=== PATIENT | male | born 1975 | race Caucasian/White ===

== ENCOUNTER 2022-05-08 14:49 | Inpatient (IN) | payer OTHER ==
[2022-05-08] MEDS ORDERED: NITROGLYCERIN OINT 1 INCH/GM PACKET TOPICAL STA (15:08)
[2022-05-08] MEDS ORDERED: ASPIRIN 81 MG PO STA (15:08)
[2022-05-08] MEDS ORDERED: MAG HYDROX/AL HYDROX/SIMETH 30 ML, HYOSCYAMINE ELIXIR 10 ML PO STA ×2 (15:18)
[2022-05-08] MEDS ORDERED: PANTOPRAZOLE 40 MG/10 ML VIAL IVP STA (15:19)
[2022-05-08 15:49] LABS: Basophils # (A) 0.1 k/uL (0-0.2); Basophils % (A) 1 %; Eosinophils # (A) 0.3 k/uL (0-0.7); Eosinophils % (A) 2 %; HCT 46.5 % (39.0-53.0); HGB 16.1 gm/dL (13.0-17.5); Lymphocytes # (A) 3.2 k/uL (1.0-4.8); Lymphocytes % (A) 20 %; MCH 31.3 pg (25.0-35.0); MCHC 34.7 g/dL (31.0-37.0); MCV 90.1 fL (80.0-100.0); Monocytes # (A) 0.9 k/uL (0-1.0); Monocytes % (A) 5 %; Neutrophils # (A) 11.5 k/uL (1.3-7.7); Neutrophils % (A) 71 %; Platelet Count 290 k/uL (150-450); RBC 5.16 m/uL (4.30-5.90); WBC 16.2 k/uL (3.8-10.6)
[2022-05-08 15:57] LABS: ALT 37 U/L (4-49); AST 135 U/L (17-59); African American GFR (CKD) >90 (>60 ml/min/1.73 sqM); Albumin 4.2 g/dL (3.5-5.0); Alkaline Phosphatase 69 U/L (38-126); Anion Gap 12 mmol/L; Blood Urea Nitrogen 8 mg/dL (9-20); Calcium 8.8 mg/dL (8.4-10.2); Carbon Dioxide 18 mmol/L (22-30); Chloride 104 mmol/L (98-107); Glucose 99 mg/dL (74-99); Magnesium 1.9 mg/dL (1.6-2.3); Non-African American GFR(CKD) >90 (>60 ml/min/1.73 sqM); Partial Thromboplastin Time 22.2 sec (22.0-30.0); Potassium 4.7 mmol/L (3.5-5.1); Prothrombin Time 10.5 sec (9.0-12.0); Sodium 134 mmol/L (137-145); Total Bilirubin 0.5 mg/dL (0.2-1.3); Total Protein 7.1 g/dL (6.3-8.2)
--- NOTE | 2022-05-08 16:22 | ED ---
General Adult HPI - General Chief complaint: Chest Pain Stated complaint: burning in chest Time Seen by Provider: 05/08/22 14:50 Source: patient, EMS, RN notes reviewed, old records reviewed Mode of arrival: EMS Limitations: no limitations - History of Present Illness Initial comments: This is a 46-year-old male who presents emergency Department with a past medical history significant for smoking and a strong family history of heart disease. Patient denies any history of high cholesterol high blood pressure or diabetes. Patient comes in today because at 4:00 in the morning started having significant left-sided chest pain radiated to his arm and into his back. Patient states thought it was heartburn so he took some antacids but it did not help. Patient states he has never had acid reflux this bad and he normally doesn't have a regular basis. Patient denies shortness of breath. Patient denies any diaphoretic episodes. Patient denies any abdominal pain. Patient denies any recent fever chills or cough. Patient denies any headache patient denies numbness weakness. - Related Data Home Medications Medication Instructions Recorded Confirmed No Known Home Medications 05/08/22 05/08/22 Allergies Allergy/AdvReac Type Severity Reaction Status Date / Time No Known Allergies Allergy Verified 05/08/22 15:51 Review of Systems ROS Statement: Those systems with pertinent positive or pertinent negative responses have been documented in the HPI. ROS Other: All systems not noted in ROS Statement are negative. Past Medical History Past Medical History: No Reported History History of Any Multi-Drug Resistant Organisms: None Reported Past Surgical History: No Surgical Hx Reported Past Psychological History: ADD/ADHD, Depression Smoking Status: Current every day smoker Past Alcohol Use History: None Reported Past Drug Use History: Marijuana General Exam - General Exam Comments Initial Comments: GENERAL: Patient is well-developed and well-nourished. Patient is nontoxic and well- hydrated and is in mild distress. ENT: Neck is soft and supple. No significant lymphadenopathy is noted. Oropharynx is clear. Moist mucous membranes. Neck has full range of motion without eliciting any pain. EYES: The sclera were anicteric and conjunctiva were pink and moist. Extraocular movements were intact and pupils were equal round and reactive to light. Eyelids were unremarkable. PULMONARY: Unlabored respirations. Good breath sounds bilaterally. No audible rales rhonchi or wheezing was noted. CARDIOVASCULAR: There is a regular rate and rhythm without any murmurs gallops or rubs. ABDOMEN: Soft and nontender with normal bowel sounds. SKIN: Skin is clear with no lesions or rashes and otherwise unremarkable. NEUROLOGIC: Patient is alert and oriented x3. Cranial nerves II through XII are grossly intact. Motor and sensory are also intact. Normal speech, volume and content. Symmetrical smile. MUSCULOSKELETAL: Normal extremities with adequate strength and full range of motion. LYMPHATICS: No significant lymphadenopathy is noted PSYCHIATRIC: Normal psychiatric evaluation. Limitations: no limitations Course Vital Signs 05/08/22 14:53 Temperature 97.8 F Pulse Rate 100 Respiratory 18 Rate Blood Pressure 123/87 O2 Sat by Pulse 96 Oximetry Medical Decision Making - Medical Decision Making I interpreted EKG. EKG shows sinus rhythm at 79 bpm AK interval 120 QRS is 103 QT interval 343 QTC is 378. Patient's EKG shows no ST segment elevation or depression. Patient has Q waves inferiorly I interpret the x-ray the chest x-ray shows no acute abnormalities. New. Bailey nt's troponin came back elevated so started the patient on heparin for his non- STEMI. I spoke with cardiology I spoke with Dr. Barboza he agrees to see the patient. I spoke with [facility] agreed to admit the patient admitted the patient wrote admitting orders. I also gave the patient aspirin and nitroglycerin in the emergency department both paced and sublingual. Patient continues to have chest pain currently. - Lab Data Result diagrams: 05/08/22 15:38 05/08/22 15:38 Lab Results 05/08/22 05/08/22 05/08/22 Range/Units 15:38 15:38 15:38 WBC 16.2 H (3.8-10.6) k/uL RBC 5.16 (4.30-5.90) m/uL Hgb 16.1 (13.0-17.5) gm/dL Hct 46.5 (39.0-53.0) % MCV 90.1 (80.0-100.0) fL MCH 31.3 (25.0-35.0) pg MCHC 34.7 (31.0-37.0) g/dL RDW 14.0 (11.5-15.5) % Plt Count 290 (150-450) k/uL MPV 9.0 Neutrophils % 71 % Lymphocytes % 20 % Monocytes % 5 % Eosinophils % 2 % Basophils % 1 % Neutrophils # 11.5 H (1.3-7.7) k/uL Lymphocytes # 3.2 (1.0-4.8) k/uL Monocytes # 0.9 (0-1.0) k/uL Eosinophils # 0.3 (0-0.7) k/uL Basophils # 0.1 (0-0.2) k/uL PT 10.5 (9.0-12.0) sec INR 1.0 (<1.2) APTT 22.2 (22.0-30.0) sec Sodium 134 L (137-145) mmol/L Potassium 4.7 (3.5-5.1) mmol/L Chloride 104 (98-107) mmol/L Carbon Dioxide 18 L (22-30) mmol/L Anion Gap 12 mmol/L BUN 8 L (9-20) mg/dL Creatinine 0.62 L (0.66-1.25) mg/dL Est GFR (CKD-EPI)AfAm >90 (>60 ml/min/1.73 sqM) Est GFR (CKD-EPI)NonAf >90 (>60 ml/min/1.73 sqM) Glucose 99 (74-99) mg/dL Calcium 8.8 (8.4-10.2) mg/dL Magnesium 1.9 (1.6-2.3) mg/dL Total Bilirubin 0.5 (0.2-1.3) mg/dL AST 135 H (17-59) U/L ALT 37 (4-49) U/L Alkaline Phosphatase 69 (38-126) U/L Troponin I (0.000-0.034) ng/mL Total Protein 7.1 (6.3-8.2) g/dL Albumin 4.2 (3.5-5.0) g/dL 05/08/22 Range/Units 15:38 WBC (3.8-10.6) k/uL RBC (4.30-5.90) m/uL Hgb (13.0-17.5) gm/dL Hct (39.0-53.0) % MCV (80.0-100.0) fL MCH (25.0-35.0) pg MCHC (31.0-37.0) g/dL RDW (11.5-15.5) % Plt Count (150-450) k/uL MPV Neutrophils % % Lymphocytes % % Monocytes % % Eosinophils % % Basophils % % Neutrophils # (1.3-7.7) k/uL Lymphocytes # (1.0-4.8) k/uL Monocytes # (0-1.0) k/uL Eosinophils # (0-0.7) k/uL Basophils # (0-0.2) k/uL PT (9.0-12.0) sec INR (<1.2) APTT (22.0-30.0) sec Sodium (137-145) mmol/L Potassium (3.5-5.1) mmol/L Chloride (98-107) mmol/L Carbon Dioxide (22-30) mmol/L Anion Gap mmol/L BUN (9-20) mg/dL Creatinine (0.66-1.25) mg/dL Est GFR (CKD-EPI)AfAm (>60 ml/min/1.73 sqM) Est GFR (CKD-EPI)NonAf (>60 ml/min/1.73 sqM) Glucose (74-99) mg/dL Calcium (8.4-10.2) mg/dL Magnesium (1.6-2.3) mg/dL Total Bilirubin (0.2-1.3) mg/dL AST (17-59) U/L ALT (4-49) U/L Alkaline Phosphatase (38-126) U/L Troponin I 7.550 H* (0.000-0.034) ng/mL Total Protein (6.3-8.2) g/dL Albumin (3.5-5.0) g/dL Critical Care Time Critical Care Time: Yes Total Critical Care Time: 35 Disposition Clinical Impression: Acute non-ST elevation myocardial infarction (NSTEMI) Disposition: ADMITTED IP TO THIS [facility] Time of Disposition: 16:51
--- NOTE | 2022-05-08 16:32 | XR ---
EXAMINATION TYPE: XR chest 2V DATE OF EXAM: 05/08/2022 COMPARISON: None INDICATION: Chest pain TECHNIQUE: Frontal and lateral views of the chest are obtained. Respiratory motion artifact is evide nt on the lateral projection FINDINGS: The heart size is normal. The pulmonary vasculature is normal. The lungs are clear. IMPRESSION: 1. No acute pulmonary process.
[2022-05-08] MEDS ORDERED: HEPARIN SODIUM 1,000 UN/ML (10ML VL) IV ONE (16:37)
[2022-05-08] MEDS ORDERED: HEPARIN SOD,PORK IN 0.45% NACL 25,000 UNIT in 0.45% NACL 1 250ML.BAG IV SCH (16:45)
[2022-05-08] MEDS ORDERED: NITROGLYCERIN SL TABS 0.4 MG TAB SUBLINGUAL STA (16:54)
[2022-05-08] MEDS ORDERED: ALPRAZolam 0.5 MG TAB PO PRN (17:20)
[2022-05-08] MEDS ORDERED: ALPRAZolam 0.25 MG TAB PO PRN (17:20)
[2022-05-08] MEDS ORDERED: NITROGLYCERIN SL TABS 0.4 MG TAB SUBLINGUAL PRN ×2 (17:20→23:21)
--- NOTE | 2022-05-08 17:27 | P.CRDCN ---
History of Present Illness Consult date: 05/08/22 History of present illness: History of Present Illness: The patient is a 46-year-old male who has not been followed by physician, history of smoking who presents to the emergency room with chest discomfort that started 4:00 in the morning, left-sided with some left arm discomfort. He felt that the discomfort was related to heartburn, the patient had heartburn on and off for the last week. In the emergency room he was noted to have a troponin of 7. He has a family history of premature CAD as well as hyperlipidemia. He felt dyspneic today but not on a regular basis. He is not very active physically,. He denies any PND, orthopnea or peripheral edema. He has no history of stroke but had no recent workup. He's taking no medication at home and he denies any alcohol intake. His EKG showed sinus mechanism with QS pattern in the inferior as well as anterolateral leads with no ST segment elevation. Medications: None Review of Systems: Respiratory: He has no history of chronic dyspnea but he had dyspnea today GI: No nausea or vomiting . No history of peptic ulcer disease. No recent GI bleed. : No hematuria or dysuria. Nervous System: No stroke or seizure. Physical Examination: 46-year-old male alert oriented, obese,Blood pressure 125/70, Heart rate 70 Head: Normocephalic. Eyes: Sclerae nonicteric. Neck: Good carotid upstroke, no bruit, no jugular venous distention. Lungs: Clear to auscultation. Heart: Regular rate and rhythm, S1-S2, no S3, no rub. No murmur. Abdomen: Soft nontender, positive bowel sounds no organomegaly. Extremities: No edema, intact distal pulses. Labs: Blood blood cells 16.2, potassium 4.7 him a BUN 8, creatinine 0.62. Troponin 7.5. Chest x-ray no acute infiltrate EKG: Normal sinus rhythm with QS pattern in the inferior leads as well as lateral precordial leads consistent with inferoapical myocardial infarction Impression: 1. Myocardial infarction, no ST elevation at this time with troponin elevation 2. Family history of premature CAD 3. Family history of hyperlipidemia 4. Chronic tobacco use Plan: 1. Continue IV heparin 2. Start beta andreas and statin 3. Obtain an echocardiogram with Doppler 4. Have discussed with him the findings recommended to proceed with cardiac catheterization, the risks and the complications were discussed with the patient. Depending on the results of the testing further recommendations will be made. 5. Thank you for this consult we will follow with you. Past Medical History Past Medical History: No Reported History History of Any Multi-Drug Resistant Organisms: None Reported Past Surgical History: No Surgical Hx Reported Past Psychological History: ADD/ADHD, Depression Smoking Status: Current every day smoker Past Alcohol Use History: None Reported Past Drug Use History: Marijuana Medications and Allergies Home Medications Medication Instructions Recorded Confirmed Type No Known Home Medications 05/08/22 05/08/22 History Allergies Allergy/AdvReac Type Severity Reaction Status Date / Time No Known Allergies Allergy Verified 05/08/22 15:51 Physical Exam Vitals: Vital Signs Temp Pulse Resp BP Pulse Ox 05/08/22 14:53 97.8 F 100 18 123/87 96 Intake and Output 05/08/22 05/08/22 05/08/22 06:59 14:59 22:59 Other: Weight 158.757 kg Results 05/08/22 15:38 05/08/22 15:38 Cardiac Enzymes 05/08/22 05/08/22 Range/Units 15:38 15:38 AST 135 H (17-59) U/L Troponin I 7.550 H* (0.000-0.034) ng/mL Coagulation 05/08/22 Range/Units 15:38 PT 10.5 (9.0-12.0) sec APTT 22.2 (22.0-30.0) sec CBC 05/08/22 Range/Units 15:38 WBC 16.2 H (3.8-10.6) k/uL RBC 5.16 (4.30-5.90) m/uL Hgb 16.1 (13.0-17.5) gm/dL Hct 46.5 (39.0-53.0) % Plt Count 290 (150-450) k/uL Comprehensive Metabolic Panel 05/08/22 Range/Units 15:38 Sodium 134 L (137-145) mmol/L Potassium 4.7 (3.5-5.1) mmol/L Chloride 104 (98-107) mmol/L Carbon Dioxide 18 L (22-30) mmol/L BUN 8 L (9-20) mg/dL Creatinine 0.62 L (0.66-1.25) mg/dL Glucose 99 (74-99) mg/dL Calcium 8.8 (8.4-10.2) mg/dL AST 135 H (17-59) U/L ALT 37 (4-49) U/L Alkaline Phosphatase 69 (38-126) U/L Total Protein 7.1 (6.3-8.2) g/dL Albumin 4.2 (3.5-5.0) g/dL Current Medications Generic Name Dose Route Start Last Admin Trade Name Freq PRN Reason Stop Dose Admin Heparin Sodium/Sodium Chloride 250 mls @ 10 mls/hr 05/08/22 16:45 05/08/22 17:03 25,000 unit/ Sodium Chloride IV 6.2989 units/kg/hr .Q24H BRAYDEN 10 mls/hr Administration Protocol 6.2989 UNITS/KG/HR Nitroglycerin 0.4 mg 05/08/22 17:03 Nitroglycerin Sl Tabs 0.4 Mg Tab SUBLINGUAL Q5M PRN Chest Pain Nitroglycerin 1 inch 05/08/22 18:00 Nitroglycerin Oint 1 Inch/Gm Packet TOPICAL Q6HR BRAYDEN Intake and Output 05/08/22 05/08/22 05/08/22 06:59 14:59 22:59 Other: Weight 158.757 kg Patient Weight 05/09/22 06:59 Weight 158.757 kg 05/08/22 15:38 05/08/22 15:38
[2022-05-08] MEDS ORDERED: ACETAMINOPHEN TAB 500 MG TAB PO STA (17:56)
[2022-05-08] MEDS: ATORVASTATIN 40 MG TAB PO SCH (18:01)
[2022-05-08] MEDS: NITROGLYCERIN SL TABS 0.4 MG TAB SUBLINGUAL PRN ×2 (18:04→18:15)
[2022-05-08] MEDS: NITROGLYCERIN OINT 1 INCH/GM PACKET TOPICAL SCH (19:01)
[2022-05-08] MEDS ORDERED: NITROGLYCERIN-D5W PMX 50 MG in DEXTROSE/WATER 1 250ML.BAG IV SCH (20:00)
[2022-05-08] MEDS: METOPROLOL TARTRATE 25 MG TAB PO SCH (20:25)
[2022-05-08] MEDS ORDERED: ASPIRIN 325 MG TAB PO ONE (21:07)
[2022-05-08] MEDS ORDERED: VERAPAMIL 2.5 MG/ML 2 ML AMP ONE (21:11)
[2022-05-08] MEDS ORDERED: LIDOCAINE 1% INJ 10MG/ML (30 ML VIAL-PF) SQ ONE ×2 (21:30→21:39)
[2022-05-08] MEDS ORDERED: fentaNYL (PF) 50 MCG/1 ML VIAL IV ONE ×2 (21:38)
[2022-05-08] MEDS ORDERED: MIDAZOLAM 2 MG/2 ML VIAL IV ONE (21:38)
[2022-05-08] MEDS ORDERED: VERAPAMIL SYRINGE (5 MG/10 ML) INTRAARTER ONE (21:39)
[2022-05-08] MEDS: HEPARIN SODIUM 1,000 UN/ML (10ML VL) IV ONE ×3 (21:39→22:06)
[2022-05-08] MEDS ORDERED: HEPARIN SODIUM 1,000 UN/ML (10ML VL) ONE ×2 (21:40→22:17)
[2022-05-08] MEDS ORDERED: SODIUM CHLORIDE 0.9% 1,000 ML IV ONE (21:42)
[2022-05-08] MEDS ORDERED: TICAGRELOR 90 MG TAB ONE (22:02)
[2022-05-08] MEDS ORDERED: TICAGRELOR 90 MG TAB PO ONE (22:03)
[2022-05-08] MEDS ORDERED: niCARdipine 25 MG/10 ML VIAL ONE (22:23)
[2022-05-08] MEDS: niCARdipine Syringe (1,000 mcg/10 mL) INTRACORON ONE ×5 (22:26→22:44)
[2022-05-08] MEDS ORDERED: HEPARIN SODIUM,PORCINE 30 ML 30 ML ONE (22:32)
[2022-05-08] MEDS ORDERED: IOPAMIDOL-370 125ML BTL INJ ONE (22:46)
[2022-05-08] MEDS ORDERED: IOPAMIDOL-370 100ML BTL INJ ONE ×2 (22:47→23:18)
[2022-05-08] MEDS ORDERED: ATROPINE SULFATE 0.1 MG/ML 10ML SYRINGE IV PRN (23:21)
[2022-05-08] MEDS ORDERED: MAG HYDROX/AL HYDROX/SIMETH 30 ML CUP PO PRN (23:21)
[2022-05-08] MEDS ORDERED: ZOLPIDEM 5 MG TAB PO PRN (23:21)
[2022-05-08] MEDS ORDERED: RX INFO: IV CONTRAST WAS GIVEN 1 EACH MISC MISCELLANE PRN (23:21)
--- NOTE | 2022-05-08 23:21 | P.PRCINT ---
Percutaneous Coronary Int. - Percutaneous Coronary Intervention Percutaneous Coronary Intervention: PROCEDURES PERFORMED: Left heart catheterization, bilateral coronary angiography, IVUS LAD, PCI mid LAD with overlapping 4.0 x 18mm and 3.5 x 33mm Xience ANDERSON, post dilated with a 4.5 NC balloon, PCI apical LAD 2.25 x 18mm Xience ANDERSON, Penumbra aspiration thrombectomy INDICATION: Non-STEMI HISTORY: Patient is pleasant 46-year-old male who had been having chest pain since 4 AM. Troponins noted to be elevated and in having ongoing chest pain and therefore decision was made to perform heart catheterization. EKG by time he arrived to the geophysical laboratory chief did show anterolateral changes and the culprit lesion appeared to be LAD. CONSENT:I have discussed the risks, benefits and alternative therapies for the above-mentioned procedure and for both sedation/analgesia as well as necessary blood product administration, if indicated, as they pertain to this patient. The patient has indicated understanding and acceptance of the risks and procedures discussed. PROCEDURE: After the risks, benefits and alternatives of the above mentioned procedure explained in detail with the patient, informed consent was obtained. Patient was taken to the catheterization lab and prepped and draped in usual fashion. 1% lidocaine was used to anesthetize the right radial artery. A 6- [place]i sheath was placed in the right radial artery using modified Seldinger technique. Left coronary angiography was performed with a 5-[place] JL 3.5 catheter and right coronary angiography was performed with a 5-[place] JR5 catheter in various views. A 5-[place] FR5 catheter was inserted into the left ventricle and pressure measurements were obtained. There were anterolateral changes in the LAD and therefore decision was made to perform PCI of LAD. A 6-[place] EBU 3.75 guide was used engage the left main. A 0.014 BMW wire was advanced into the distal LAD. Predilation was performed with a 3.0 balloon. There is still no antegrade flow and therefore I this was performed which did show intraluminal wire position with diffuse clot throughout the entire mid LAD. Therefore penumbra aspiration thrombectomy was performed for 3 runs with a large amount of thrombus aspirated. Next predilation was performed with a 3.0 balloon. The vessel is noted to be 4.25 x 4.5 proximally and 3.5 x 3.25 more distally and therefore overlapping 4.0 x 18 mm and 3.5 x 33 mm Xience ANDERSON were placed in the mid LAD. IVUS was again performed which showed mildly underexpanded stent and therefore the stents were postdilated with a 4.5 balloon. There was extensive thrombus noted and there was temporary no reflow however this improved with nicardipine. There was a more distal apical LAD lesion and this was covered with a 2.25 x 18 mm Xience ANDERSON. The wire was pulled and final angiograms were performed. Her intervention there was 100% stenosis and NOLAN 0 flow. Postintervention there was circumflex percent stenosis and NOLAN-3 flow. The right radial sheath was removed and a TR band was placed with hemostasis achieved. The patient tolerated the procedure well. Patient was transported back to the post catheterization holding area in stable condition. Conscious Sedation: Patient was monitored under the direct supervision of vision of myself for conscious sedation using Versed and fentanyl for a total duration of 90 minutes HEMODYNAMICS: Aorta: 104/72 LV: 98/10, LVEDP 23 SELECTIVE CORONARY ARTERIOGRAPHY: LEFT MAIN: The left main is a large caliber vessel which bifurcates into the LAD and circumflex. There is no significant stenosis. LEFT ANTERIOR DESCENDING CORONARY ARTERY: LAD is a large caliber vessel which wraps around to the apex. There is 100% stenosis just after a large septal. Additionally once balloon angioplasty was performed as a distal LAD 80% stenosis. LEFT CIRCUMFLEX CORONARY ARTERY: Left circumflex is a moderate caliber vessel with mild 20-30% proximal circumflex stenosis. There are left to right collaterals to the RCA. RIGHT CORONARY ARTERY: The right coronary artery is a large caliber vessel which gives off a PDA and PLV branch and is the dominant vessel. There is 100% mid RCA stenosis. FINAL IMPRESSION: 1. CAD as described above including 100% LAD stenosis, 100% RCA stenosis, 20- 30% circumflex stenosis 2. S/p PCI mid LAD with overlapping 4.0 x 18mm and 3.5 x 33mm Xience ANDERSON, PCI apical LAD 2.25 x 18mm Xience ANDERSON 3. Elevated left sided filling pressures PLAN: 1. Aggressive risk factor modification per most recent ACC/AHA guidelines. 2. Continue dual antiplatelets with aspirin and Brilinta for 12 months. 3. RCA appears to be more of a BOTTOM BUFFER however may consider PCI pending further w orkup and if patient has angina-type symptoms.
[2022-05-08 23:32] LABS: Glucose,Whole Blood 91 mg/dL (70-110)
[2022-05-09] MEDS: NITROGLYCERIN OINT 1 INCH/GM PACKET TOPICAL SCH ×2 (00:45→06:36)
[2022-05-09 04:25] LABS: African American GFR (CKD) >90 (>60 ml/min/1.73 sqM); Non-African American GFR(CKD) >90 (>60 ml/min/1.73 sqM)
[2022-05-09] MEDS ORDERED: ASPIRIN 325 MG TAB PO ONE (06:00)
[2022-05-09] MEDS ORDERED: ATORVASTATIN 80 MG TAB PO ONE (06:00)
[2022-05-09] MEDS ORDERED: HEPARIN SODIUM,PORCINE 10,000 UNIT in SODIUM CHLORIDE 0.9% 1,000 ML IRRIGATION PRN (07:00)
[2022-05-09] MEDS ORDERED: HEPARIN SODIUM,PORCINE 2,500 UNIT in SODIUM CHLORIDE 0.9% 250 ML IRRIGATION PRN (07:00)
[2022-05-09 07:04] LABS: Basophils % (A) 0 %; Eosinophils # (A) 0.2 k/uL (0-0.7); Eosinophils % (A) 2 %; HCT 41.1 % (39.0-53.0); HGB 13.8 gm/dL (13.0-17.5); Lymphocytes # (A) 2.1 k/uL (1.0-4.8); Lymphocytes % (A) 19 %; MCH 30.2 pg (25.0-35.0); MCHC 33.5 g/dL (31.0-37.0); MCV 90.4 fL (80.0-100.0); Mean Platelet Volume 8.9; Monocytes # (A) 0.8 k/uL (0-1.0); Monocytes % (A) 8 %; Neutrophils # (A) 7.7 k/uL (1.3-7.7); Neutrophils % (A) 70 %; Platelet Count 308 k/uL (150-450); RBC 4.55 m/uL (4.30-5.90); RDW 13.7 % (11.5-15.5); WBC 10.9 k/uL (3.8-10.6)
--- NOTE | 2022-05-09 07:41 | P.PN ---
Subjective Progress Note Date: 05/09/22 PROGRESS NOTE The patient presented yesterday with symptoms of chest discomfort and had elevation of his troponin, during the night he had more chest discomfort and underwent emergent cardiac catheterization by Dr. Fish, was found to have totally occluded RCA and LAD was large amount of thrombus in the LAD and underwent stenting of that vessel with thrombectomy. He is feeling better this morning. He denies any chest discomfort. He is in sinus mechanism. Hemodynamically he is stable, with no ventricular ectopic activity. His urinary output is good. He denies any nausea or vomiting. The RCA occlusion appears to be chronic. Medications: Aspirin, Lipitor 40 mg daily, metoprolol 25 mg twice a day, Brilinta 90 mg twice a day PHYSICAL EXAMINATION: Blood pressure 104/60 heart rate 90 LUNGS: Clear to auscultation HEART: Regular rate and rhythm, S1, S2. No S3. systolic ejection murmur ABDOMEN: Soft, nontender, no organomegaly EXTREMETIES: No edema, right radial pulse intact LAB: Troponin up to 99, creatinine 0.66. NT proBNP 1930. IMPRESSION: 1. Status post stenting of the LAD in the setting of myocardial infarction, started on presentation 2. Chronically occluded RCA 3. Chronic tobacco use 4. Family history of premature CAD and hyperlipidemia PLAN: 1. Obtain an echocardiogram with Doppler 2. Start spironolactone and low dose lisinopril 3. Increase activity as tolerated 4. Depending on his progress further recommendations will be made Objective - Vital Signs Vital signs: Vital Signs Temp 98.5 F 05/09/22 04:00 Pulse 90 05/09/22 04:00 Resp 9 L 05/09/22 04:00 BP 104/61 05/09/22 04:00 Pulse Ox 94 L 05/09/22 07:19 FiO2 Intake & Output 05/08/22 05/09/22 05/09/22 18:59 06:59 18:59 Output Total 900 Balance -900 Weight 158.757 kg 165.2 kg Output: Urine 900 - Labs CBC & Chem 7: 05/09/22 03:47 05/09/22 03:47 Labs: Abnormal Lab Results - Last 24 Hours (Table) 05/08/22 05/08/22 05/08/22 Range/Units 15:38 15:38 15:38 WBC 16.2 H (3.8-10.6) k/uL Neutrophils # 11.5 H (1.3-7.7) k/uL Sodium 134 L (137-145) mmol/L Carbon Dioxide 18 L (22-30) mmol/L BUN 8 L (9-20) mg/dL Creatinine 0.62 L (0.66-1.25) mg/dL AST 135 H (17-59) U/L Troponin I 7.550 H* (0.000-0.034) ng/mL 05/08/22 05/09/22 05/09/22 Range/Units 18:59 03:47 03:47 WBC 10.9 H (3.8-10.6) k/uL Neutrophils # (1.3-7.7) k/uL Sodium (137-145) mmol/L Carbon Dioxide (22-30) mmol/L BUN (9-20) mg/dL Creatinine (0.66-1.25) mg/dL AST (17-59) U/L Troponin I 19.000 H* 99.300 H* (0.000-0.034) ng/mL
--- NOTE | 2022-05-09 07:52 | P.HPIM ---
History of Present Illness This is a pleasant 46 years old male with no significant past medical history. Patient presents because of chest pain. Patient evaluated emergently by editing clerk and he underwent cardiac cath showing significant coronary artery disease with 100% LAD stenosis, 100% RCA stenosis, 20-30% circumflex stenosis. Patient is status post PCI to the mid LAD. With close monitoring for possible stenting of the other arteries of RCA if patient has persistent chest pain. However this morning patient denies any chest pain or dyspnea. Patient states he is a smoker about half pack per day, he states he quit yesterday, no alcohol or illicit drugs. Vital signs stable. Showed mild leukocytosis of 16.2, rest CBC, INR, BMP and liver enzymes were unremarkable. Troponin elevated 7.5, 1989. EKG showing normal sinus rhythm with marked sinus arrhythmia at [address]-T changes, low voltage. Review of Systems Review of systems CONSTITUTIONAL: No fever, no malaise, no fatigue. HEENT: No recent visual problems or hearing problems. Denied any sore throat. CARDIOVASCULAR: No orthopnea, PND, no palpitations, no syncope. PULMONARY: No shortness of breath, no cough, no hemoptysis. GASTROINTESTINAL: No diarrhea, no nausea, no vomiting, no abdominal pain. Normoactive bowel sounds. NEUROLOGICAL: No headaches, no weakness, no numbness. HEMATOLOGICAL: Denies any bleeding or petechiae. GENITOURINARY: Denies any burning micturition, frequency, or urgency. MUSCULOSKELETAL/RHEUMATOLOGICAL: Denies any joint pain, swelling, or any muscle pain. ENDOCRINE: Denies any polyuria or polydipsia. Past Medical History Past Medical History: Myocardial Infarction ([place]) Additional Past Medical History / Comment(s): AZ Apr 2022 (current admission) Last Myocardial Infarction Date:: 05/08/22 History of Any Multi-Drug Resistant Organisms: None Reported Past Surgical History: Heart Catheterization With Stent Additional Past Surgical History / Comment(s): Heart Cath Apr 2022 Past Anesthesia/Blood Transfusion Reactions: No Reported Reaction Date of Last Stent Placement:: 05/08/22 Past Psychological History: ADD/ADHD, Depression Smoking Status: Current every day smoker Past Alcohol Use History: None Reported Past Drug Use History: Marijuana Medications and Allergies Home Medications Medication Instructions Recorded Confirmed Type No Known Home Medications 05/08/22 05/08/22 History Allergies Allergy/AdvReac Type Severity Reaction Status Date / Time No Known Allergies Allergy Verified 05/08/22 15:51 Physical Exam Vitals: Vital Signs Temp Pulse Resp BP Pulse Ox 05/09/22 04:00 98.5 F 90 9 L 104/61 95 05/09/22 02:00 18 05/09/22 01:00 79 18 101/75 97 05/09/22 00:00 99.1 F 87 14 108/72 96 05/08/22 18:59 85 15 124/64 100 05/08/22 14:53 97.8 F 100 18 123/87 96 Intake and Output 05/08/22 05/08/22 05/09/22 14:59 22:59 06:59 Output Total 900 Balance -900 Output: Urine 900 Other: Weight 158.757 kg 158.757 kg 165.2 kg GENERAL: The patient is alert and oriented x3, not in any acute distress. Well developed, well nourished. HEENT: Pupils are round and equally reacting to light. EOMI. No scleral icterus. No conjunctival pallor. Normocephalic, atraumatic. No pharyngeal erythema. No thyromegaly. CARDIOVASCULAR: S1 and S2 present. No murmurs, rubs, or gallops. PULMONARY: Chest is clear to auscultation, no wheezing or crackles. ABDOMEN: Soft, nontender, nondistended, normoactive bowel sounds. No palpable organomegaly. MUSCULOSKELETAL: No joint swelling or deformity. EXTREMITIES: No cyanosis, clubbing, or pedal edema. NEUROLOGICAL: Gross neurological examination did not reveal any focal deficits. SKIN: No rashes. no petechiae. Results CBC & Chem 7: 05/09/22 03:47 05/09/22 03:47 Labs: Abnormal Lab Results - Last 24 Hours (Table) 05/08/22 05/08/22 05/08/22 Range/Units 15:38 15:38 15:38 WBC 16.2 H (3.8-10.6) k/uL Neutrophils # 11.5 H (1.3-7.7) k/uL Sodium 134 L (137-145) mmol/L Carbon Dioxide 18 L (22-30) mmol/L BUN 8 L (9-20) mg/dL Creatinine 0.62 L (0.66-1.25) mg/dL AST 135 H (17-59) U/L Troponin I 7.550 H* (0.000-0.034) ng/mL 05/08/22 05/09/22 Range/Units 18:59 03:47 WBC (3.8-10.6) k/uL Neutrophils # (1.3-7.7) k/uL Sodium (137-145) mmol/L Carbon Dioxide (22-30) mmol/L BUN (9-20) mg/dL Creatinine (0.66-1.25) mg/dL AST (17-59) U/L Troponin I 19.000 H* 99.300 H* (0.000-0.034) ng/mL Thrombosis Risk Factor Assmnt - Choose All That Apply Any of the Below Risk Factors Present?: Yes Each Factor Represents 1 point: Acute [place], Obesity (BMI >25) Other Risk Factors: No Other congenital or acquired thrombophilia - If yes, enter type in comment: No Thrombosis Risk Factor Assessment Total Risk Factor Score: 2 Thrombosis Risk Factor Assessment Level: Low Risk Assessment and Plan Assessment: Acute non-STEMI, status post PCI to LAD. Secondary to 100% stenosis of LAD. Patient also has 100% stenosis of RCA with possible need of stenting of persistent symptoms. 20-30% stenosis of circumflex artery Morbid obesity with BMI of 49.4. Mild leukocytosis, most likely reactive secondary to above Nicotine dependence Plan: Continue with dual antiplatelet therapy, aspirin and brillinta Monitor for any chest pain which might need further intervention per editing clerk Cardiology on the case Nicotine patch Labs and medication were reviewed.. Continue same treatment. Continue with symptomatic treatment. Resume home medication. Monitor lytes and vitals. DVT and GI prophylaxis. Further recommendations as per clinical course of the patient DVT prophylaxis: heparin GI Prophylaxis: Ppi Prognosis is guarded
[2022-05-09 08:00] LABS: Anion Gap 8 mmol/L; Blood Urea Nitrogen 7 mg/dL (9-20); Calcium 8.5 mg/dL (8.4-10.2); Carbon Dioxide 21 mmol/L (22-30); Chloride 107 mmol/L (98-107); Glucose 100 mg/dL (74-99); Potassium 4.1 mmol/L (3.5-5.1); Sodium 136 mmol/L (137-145)
[2022-05-09] MEDS ORDERED: ASPIRIN 325 MG TAB PO SCH (09:00)
[2022-05-09 09:10] LABS: Chol/HDL Ratio 8.02 Ratio; LDL Cholesterol,Calculated 140.6 mg/dL (0.0-131.0)
[2022-05-09] MEDS: ATORVASTATIN 40 MG TAB PO SCH (09:41)
[2022-05-09] MEDS: METOPROLOL TARTRATE 25 MG TAB PO SCH ×2 (09:41→20:10)
[2022-05-09] MEDS: TICAGRELOR 90 MG TAB PO SCH ×2 (09:42→20:09)
[2022-05-09] MEDS: SPIRONOLACTONE 25 MG TAB PO SCH (09:42)
[2022-05-09] MEDS: NICOTINE 14MG/24HR PATCH TRANSDERM SCH (09:42)
[2022-05-09 10:36] VITALS: BMI 49.4
--- NOTE | 2022-05-09 12:04 | CA ---
Transthoracic Echo Report Name: [place] Age: 46 Gender: M : 1975 Exam Date: 05/09/2022 09:25 Exam Location: [facility] Ht (in): 72 Wt (lb): 364 Ordering Physician: Britton Barboza MD ([id number]) Attending/Referring Phys: [employer] Boat Mate Arlin Jones RDCS Procedure CPT: Indications: IN Cardiac Hx: Technical Quality: Technically difficult study Contrast 1: Lumason Total Dose (mL): 5 Contrast 2: Total Dose (mL): MEASUREMENTS (Male / Female) Normal Values 2D ECHO LV Diastolic Diameter PLAX 5.1 cm 4.2 - 5.9 / 3.9 - 5.3 cm LV Systolic Diameter PLAX 3.7 cm IVS Diastolic Thickness 1.3 cm 0.6 - 1.0 / 0.6 - 0.9 cm LVPW Diastolic Thickness 1.4 cm 0.6 - 1.0 / 0.6 - 0.9 cm LV Relative Wall Thickness 0.5 RV Internal Dim ED PLAX 2.8 cm LA Volume 74.9 cm??? 18 - 58 / 22 - 52 cm??? M-MODE Aortic Root Diameter MM 3.3 cm LA Systolic Diameter MM 3.8 cm LA Ao Ratio MM 1.2 AV Cusp Separation MM 1.6 cm DOPPLER MV Area PHT 2.7 cm??? Mitral E Point Velocity 51.6 cm/s Mitral A Point Velocity 71.0 cm/s Mitral E to A Ratio 0.7 MV Deceleration Time 277.7 ms MV E' Velocity 6.2 cm/s Mitral E to MV E' Ratio 8.4 FINDINGS Left Ventricle Mildly increased septal wall thickness. Left ventricular ejection fraction is estimated at 35%. Apical, Septel, Lateral, Inferior =, Anterior Hypokinesis. Right Ventricle Normal right ventricular size and function. Right Atrium Normal right atrial size. Left Atrium Moderately increased left atrial volume. Mildly increased left atrial area. Mitral Valve Structurally normal mitral valve. Mild mitral regurgitation. Aortic Valve Aortic valve not well visualized. Tricuspid Valve Structurally normal tricuspid valve. Mild tricuspid regurgitation. Pulmonic Valve Pulmonic valve not well visualized. Pericardium Normal pericardium. Aorta Normal size aortic root and proximal ascending aorta. CONCLUSIONS Technically suboptimal study. Moderate to severe LV systolic dysfunction with an ejection fraction of 35% secondary to prior extensive myocardial infarction and LAD distribution there is hypokinesis of the apex mid to distal anterior wall and anteroseptal Mitral and tricuspid regurgitation Previewed by: Dr. Lucius Arias MD (Electronically Signed) Final Date: 09 May 2022 12:03
[2022-05-09] MEDS ORDERED: ATORVASTATIN 80 MG TAB PO SCH (21:00)
[2022-05-10] MEDS: NICOTINE 14MG/24HR PATCH TRANSDERM SCH (08:36)
[2022-05-10] MEDS: METOPROLOL TARTRATE 25 MG TAB PO SCH (08:37)
[2022-05-10] MEDS: ATORVASTATIN 40 MG TAB PO SCH (08:37)
[2022-05-10] MEDS: TICAGRELOR 90 MG TAB PO SCH ×2 (08:37→20:16)
[2022-05-10] MEDS: ASPIRIN 81 MG PO SCH (08:37)
[2022-05-10 08:46] LABS: African American GFR (CKD) >90 (>60 ml/min/1.73 sqM); Anion Gap 9 mmol/L; Blood Urea Nitrogen 10 mg/dL (9-20); Carbon Dioxide 23 mmol/L (22-30); Chloride 103 mmol/L (98-107); Glucose 122 mg/dL (74-99); Non-African American GFR(CKD) >90 (>60 ml/min/1.73 sqM); Sodium 135 mmol/L (137-145)
--- NOTE | 2022-05-10 09:57 | P.PN ---
Subjective Progress Note Date: 05/10/22 HISTORY OF PRESENT ILLNESS: Patient examined this morning at the bedside. Patient is sitting on the side of the bed. Patient denies chest pain or pressure. He denies shortness of breath. He's been up ambulating to the bathroom without difficulty. Echocardiogram completed revealing ejection fraction 35%. Telemetry reveals sinus mechanism with heart rate in the 90s. Blood pressure is stable. PHYSICAL EXAM: VITAL SIGNS: Reviewed. GENERAL: Well-developed in no acute distress. NECK: Supple. No JVD or thyromegaly LUNGS: Respirations even and unlabored. Lungs essentially clear to auscultation bilaterally. HEART: Regular rate and rhythm. S1 and S2 heard. EXTREMITIES: Normal range of motion. No clubbing or cyanosis. Peripheral pulses intact. No lower extremity edema ASSESSMENT: Non-STEMI Ischemic cardiomyopathy, EF 35% Hyperlipidemia, LDL 140 Family history of premature CAD Family history of hyperlipidemia Nicotine dependence PLAN: Continue current cardiac medications Change metoprolol to 50mg of succinate Continue telemetry monitoring Possible discharge home tomorrow if patient remains stable Further recommendations pending patient course Nurse practitioner note has been reviewed by physician. Signing provider agrees with the documented findings, assessment, and plan of care. Objective - Vital Signs Vital signs: Vital Signs Temp 98.0 F 05/10/22 08:00 Pulse 96 05/10/22 08:00 Resp 18 05/10/22 08:00 BP 98/66 05/10/22 08:00 Pulse Ox 98 05/10/22 08:12 FiO2 Intake & Output 05/09/22 05/10/22 05/10/22 18:59 06:59 18:59 Intake Total 600 240 118 Output Total 1999 Balance -1400 240 118 Weight 165.2 kg Intake: Oral 600 240 118 Output: Urine 1999 Other: Voiding Method Toilet # Voids 1 - Labs CBC & Chem 7: 05/09/22 03:47 05/10/22 07:43 Labs: Abnormal Lab Results - Last 24 Hours (Table) 05/10/22 Range/Units 07:43 Sodium 135 L (137-145) mmol/L Glucose 122 H (74-99) mg/dL Calcium 8.0 L (8.4-10.2) mg/dL
--- NOTE | 2022-05-10 13:46 | P.PN ---
Subjective This is a pleasant 46 years old male with no significant past medical history. Patient presents because of chest pain. Patient evaluated emergently by color checker roving or yarn and he underwent cardiac cath showing significant coronary artery disease with 100% LAD stenosis, 100% RCA stenosis, 20-30% circumflex stenosis. Patient is status post PCI to the mid LAD. With close monitoring for possible stenting of the other arteries of RCA if patient has persistent chest pain. However this morning patient denies any chest pain or dyspnea. Patient states he is a smoker about half pack per day, he states he quit yesterday, no alcohol or illicit drugs. Vital signs stable. Showed mild leukocytosis of 16.2, rest CBC, INR, BMP and liver enzymes were unremarkable. Troponin elevated 7.5, 1989. EKG showing normal sinus rhythm with marked sinus arrhythmia at [address]-T changes, low voltage. 05-10-22 Patient feels better, no chest pain or dyspnea but he still slightly tachycardic. Patient has ischemic cardiomyopathy with ejection fraction 35% Metoprolol increased today 25 up to 50 mg, we'll monitor blood pressure and heart rate Aspirin and brillinta and importance of entrance to treatment is explained for the patient and he agreeable Objective - Vital Signs Vital signs: Vital Signs Temp 98.0 F 05/10/22 08:00 Pulse 96 05/10/22 08:00 Resp 18 05/10/22 08:00 BP 98/66 05/10/22 08:00 Pulse Ox 98 05/10/22 08:12 FiO2 Intake & Output 05/09/22 05/10/22 05/10/22 18:59 06:59 18:59 Intake Total 600 240 118 Output Total 1999 Balance -1400 240 118 Weight 165.2 kg Intake: Oral 600 240 118 Output: Urine 1999 Other: Voiding Method Toilet # Voids 1 - Exam GENERAL: The patient is alert and oriented x3, not in any acute distress. Well developed, well nourished. HEENT: Pupils are round and equally reacting to light. EOMI. No scleral icterus. No conjunctival pallor. Normocephalic, atraumatic. No pharyngeal erythema. No thyromegaly. CARDIOVASCULAR: S1 and S2 present. No murmurs, rubs, or gallops. PULMONARY: Chest is clear to auscultation, no wheezing or crackles. ABDOMEN: Soft, nontender, nondistended, normoactive bowel sounds. No palpable organomegaly. MUSCULOSKELETAL: No joint swelling or deformity. EXTREMITIES: No cyanosis, clubbing, or pedal edema. NEUROLOGICAL: Gross neurological examination did not reveal any focal deficits. SKIN: No rashes. no petechiae. - Labs CBC & Chem 7: 05/09/22 03:47 05/10/22 07:43 Labs: Abnormal Lab Results - Last 24 Hours (Table) 05/10/22 Range/Units 07:43 Sodium 135 L (137-145) mmol/L Glucose 122 H (74-99) mg/dL Calcium 8.0 L (8.4-10.2) mg/dL Assessment and Plan Assessment: Acute non-STEMI, status post PCI to LAD. Secondary to 100% stenosis of LAD. Patient also has 100% stenosis of RCA with possible need of stenting of persistent symptoms. 20-30% stenosis of circumflex artery Morbid obesity with BMI of 49.4. Mild leukocytosis, most likely reactive secondary to above Nicotine dependence Plan: Continue with dual antiplatelet therapy, aspirin and brillinta Increase metoprolol and monitor blood pressure and heart rate Cardiology on the case Nicotine patch Labs and medication were reviewed.. Continue same treatment. Continue with symptomatic treatment. Resume home medication. Monitor lytes and vitals. DVT and GI prophylaxis. Further recommendations as per clinical course of the patie nt DVT prophylaxis: heparin GI Prophylaxis: Ppi Prognosis is guarded
[2022-05-10] MEDS: METOPROLOL SUCCINATE (ER) 50 MG TAB.ER.24H PO SCH (17:17)
[2022-05-10] MEDS: SPIRONOLACTONE 25 MG TAB PO SCH (17:17)
[2022-05-11 07:58] VITALS: RESP 20
[2022-05-11] MEDS: METOPROLOL SUCCINATE (ER) 50 MG TAB.ER.24H PO SCH (08:41)
[2022-05-11] MEDS: TICAGRELOR 90 MG TAB PO SCH (08:41)
[2022-05-11] MEDS: SPIRONOLACTONE 25 MG TAB PO SCH (08:41)
[2022-05-11] MEDS: NICOTINE 14MG/24HR PATCH TRANSDERM SCH (08:41)
[2022-05-11] MEDS: ASPIRIN 81 MG PO SCH (08:41)
[2022-05-11] MEDS: ATORVASTATIN 40 MG TAB PO SCH (08:41)
--- NOTE | 2022-05-11 10:13 | P.PN ---
Subjective Progress Note Date: 05/11/22 HISTORY OF PRESENT ILLNESS: Patient examined this morning at the bedside. Patient is sitting on the side of the bed. Patient denies chest pain or pressure. He denies shortness of breath. He's been up ambulating to the bathroom without difficulty. Echocardiogram completed revealing ejection fraction 35%. Telemetry reveals sinus mechanism with heart rate in the 90s. Blood pressure is stable. 05/11/2022 Patient examined this for the bedside. Patient denies chest pain or pressure. He denies shortness of breath. He has been up ambulating to the bathroom without difficulty. Vital signs are stable. Heart rate is in 80s. PHYSICAL EXAM: VITAL SIGNS: Reviewed. GENERAL: Well-developed in no acute distress. NECK: Supple. No JVD or thyromegaly LUNGS: Respirations even and unlabored. Lungs essentially clear to auscultation bilaterally. HEART: Regular rate and rhythm. S1 and S2 heard. EXTREMITIES: Normal range of motion. No clubbing or cyanosis. Peripheral pulses intact. No lower extremity edema ASSESSMENT: Non-STEMI Ischemic cardiomyopathy, EF 35% Hyperlipidemia, LDL 140 Family history of premature CAD Family history of hyperlipidemia Nicotine dependence PLAN: Continue current cardiac medications Anticipate discharge home this afternoon Further recommendations pending patient course Nurse practitioner note has been reviewed by physician. Signing provider agrees with the documented findings, assessment, and plan of care. Objective - Vital Signs Vital signs: Vital Signs Temp 97.5 F L 05/11/22 07:58 Pulse 81 05/11/22 08:35 Resp 20 05/11/22 08:35 BP 98/54 05/11/22 08:35 Pulse Ox 96 05/11/22 07:58 FiO2 Intake & Output 05/10/22 05/11/22 05/11/22 18:59 06:59 18:59 Intake Total 1356 236 Balance 1356 236 Intake: Intake, IV Titration 0 Amount Sodium Chloride 0.9% 1, 0 000 ml @ 0 mls/hr IV .STK -[facility] ONE Rx#:[id number] Oral 1356 236 Other: Voiding Method Toilet # Voids 2 - Labs CBC & Chem 7: 05/09/22 03:47 05/10/22 07:43
[2022-05-11 11:45] VITALS: BP 94/55; PULSE 84; TEMP 97.7
== END 2022-05-11 16:30 | disposition home or self-care (01) | DRG 247 ==
LOC: EC 14:49 → 3SCARD 17:05 → 2SICU 21:05 → 3SCARD 05-09 18:43
PROVIDERS: ADMIT Internal Medicine; ATTEND Internal Medicine
PROC: 027136Z Dilation of Coronary Artery, Two Arteries with Three Drug-eluting Intraluminal Devices, Percutaneous Approach (ICD-10-PCS; principal; 2022-05-08 21:04)
PROC: 02C03ZZ Extirpation of Matter from Coronary Artery, One Artery, Percutaneous Approach (ICD-10-PCS; 2022-05-08 21:04)
PROC: 4A023N7 Measurement of Cardiac Sampling and Pressure, Left Heart, Percutaneous Approach (ICD-10-PCS; 2022-05-08 21:04)
PROC: B2111ZZ Fluoroscopy of Multiple Coronary Arteries using Low Osmolar Contrast (ICD-10-PCS; 2022-05-08 21:04)
DX: I21.4 Non-ST elevation (NSTEMI) myocardial infarction (principal); Z68.42 Body mass index [BMI] 45.0-49.9, adult; E66.01 Morbid (severe) obesity due to excess calories; D72.828 Other elevated white blood cell count; E78.5 Hyperlipidemia, unspecified; I25.119 Atherosclerotic heart disease of native coronary artery with unspecified angina pectoris; F17.210 Nicotine dependence, cigarettes, uncomplicated; I25.5 Ischemic cardiomyopathy; R00.0 Tachycardia, unspecified; Z28.310 Unvaccinated for COVID-19; Z79.82 Long term (current) use of aspirin; Z79.02 Long term (current) use of antithrombotics/antiplatelets; Z79.899 Other long term (current) drug therapy; Z82.49 Family history of ischemic heart disease and other diseases of the circulatory system
CPT/HCPCS: 36415; 71046; 80048; 80053; 80061; 83735; 83880; 84484; 85025; 85610; 85730; 92973; 92978; 93005; 93306; 93458; 94760; 96365; 96366; 96367; 96375; 99291

== ENCOUNTER → 2022-06-02 | Outpatient (CLI) | payer OTHER ==
[2022-06-02 14:43] LABS: Basophils # (A) 0.07 X 10*3/uL (0.00-0.10); Basophils % (A) 0.7 %; Eosinophils # (A) 0.56 X 10*3/uL (0.04-0.35); Eosinophils % (A) 5.6 %; HCT 45.6 % (39.6-50.0); Immature Grans, Automated 0.3 %; Lymphocytes # (A) 2.62 X 10*3/uL (0.90-5.00); Lymphocytes % (A) 26.2 %; MCH 29.4 pg (27.0-32.0); MCHC 32.9 g/dL (32.0-37.0); MCV 89.4 fL (80.0-97.0); Mean Platelet Volume 9.9 fL (9.5-12.2); Monocytes # (A) 0.84 X 10*3/uL (0.20-1.00); Monocytes % (A) 8.4 %; NRBC Per 100 WBC 0 /100 WBCS (0.0-0.0); Neutrophils # (A) 5.87 X 10*3/uL (1.80-7.70); Neutrophils % (A) 58.8 %; Platelet Count 327 X 10*3/uL (140-440); RDW 13.8 % (11.5-14.5); WBC 9.99 X 10*3/uL (4.50-10.00)
[2022-06-02 15:41] LABS: ALT 33 U/L (10-49); AST 20 U/L (14-35); African American GFR (CKD) 124.3 (60.0-200.0); Albumin 4.4 g/dL (3.8-4.9); Albumin/Globulin Ratio 1.67 (1.60-3.17); Alkaline Phosphatase 65 U/L (41-126); BUN/Creat Ratio 11.25 Ratio (12.00-20.00); Blood Urea Nitrogen 8.8 mg/dL (9.0-27.0); Calcium 9.6 mg/dL (8.7-10.3); Carbon Dioxide 23.3 mmol/L (20.0-27.5); Chloride 102 mmol/L (96-109); Chol/HDL Ratio 4.75 Ratio; Globulin 2.6 g/dL (1.6-3.3); Glucose 88 mg/dL (70-110); LDL Cholesterol,Calculated 105.7 mg/dL (0.0-131.0); Non-African American GFR(CKD) 107.2 (60.0-200.0); Potassium 5.1 mmol/L (3.5-5.5); Sodium 136 mmol/L (135-145)
== END | disposition home or self-care (01) ==
LOC: LABWHC1 10:10
PROVIDERS: ATTEND Family Medicine
DX: Z00.00 Encounter for general adult medical examination without abnormal findings (principal); E55.9 Vitamin D deficiency, unspecified
CPT/HCPCS: 80061; 80053; 85025; 82306; 36415; G0103

== ENCOUNTER 2022-07-04 21:56 | Emergency (ER) | payer OTHER ==
[2022-07-04 22:05] VITALS: RESP 18; TEMP 98.1
[2022-07-04 22:45] LABS: Basophils # (A) 0.1 k/uL (0-0.2); Basophils % (A) 1 %; Eosinophils # (A) 0.3 k/uL (0-0.7); Eosinophils % (A) 4 %; HCT 24.3 % (39.0-53.0); HGB 14.5 gm/dL (13.0-17.5); Lymphocytes # (A) 2.1 k/uL (1.0-4.8); Lymphocytes % (A) 25 %; MCV 90.2 fL (80.0-100.0); Mean Platelet Volume 7.5; Monocytes # (A) 0.6 k/uL (0-1.0); Monocytes % (A) 8 %; Neutrophils # (A) 4.9 k/uL (1.3-7.7); Neutrophils % (A) 60 %; Platelet Count 179 k/uL (150-450); RBC 2.69 m/uL (4.30-5.90); RDW 13.5 % (11.5-15.5); WBC 8.2 k/uL (3.8-10.6)
[2022-07-04 22:59] LABS: ALT 30 U/L (4-49); AST 29 U/L (17-59); African American GFR (CKD) >90 (>60 ml/min/1.73 sqM); Albumin 3.8 g/dL (3.5-5.0); Alkaline Phosphatase 67 U/L (38-126); Anion Gap 9 mmol/L; Blood Urea Nitrogen 15 mg/dL (9-20); Calcium 8.9 mg/dL (8.4-10.2); Carbon Dioxide 20 mmol/L (22-30); Chloride 108 mmol/L (98-107); Glucose 148 mg/dL (74-99); Non-African American GFR(CKD) >90 (>60 ml/min/1.73 sqM); Potassium 4.3 mmol/L (3.5-5.1); Sodium 137 mmol/L (137-145); Total Bilirubin 0.2 mg/dL (0.2-1.3); Total Protein 6.8 g/dL (6.3-8.2)
--- NOTE | 2022-07-04 23:29 | XR ---
EXAMINATION TYPE: XR chest 2V DATE OF EXAM: 07/04/2022 COMPARISON: 05/08/2022 HISTORY: Chest pain TECHNIQUE: 2 view FINDINGS: Heart is normal. Lungs are clear of infiltrate. There are no hilar masses. Bony thorax is i ntact. IMPRESSION: No active cardiopulmonary disease. Normal heart and no change.
[2022-07-04 23:40] LABS: MCHC 59.9 g/dL (31.0-37.0)
[2022-07-05] MEDS ORDERED: KETOROLAC 15 MG/ML 1 ML VIAL IVP STA (03:35)
[2022-07-05 04:23] LABS: INR 0.9 (<1.2); Partial Thromboplastin Time 22.8 sec (22.0-30.0)
[2022-07-05 04:50] VITALS: BP 104/66
--- NOTE | 2022-07-05 05:54 | ED ---
General Adult HPI - General Chief complaint: Chest Pain Stated complaint: sob, tachycardia Time Seen by Provider: 07/05/22 03:24 Source: patient Mode of arrival: ambulatory - History of Present Illness Initial comments: This is a 46-year-old male with a past medical history including hypertension and previous MS on 05/08/2022 presents emergency department for chest pain. The patient stated that he had some mild chest pain in the central portion of his chest over the last 2 days and noted that he had an elevated heart rate on his watch. The patient stated that because of his recent MS, he wanted evaluated emergency department to make sure he was okay. The patient denied any shortness of breath. The patient denied any other acute pain or complaints at this time. The patient was resting in bed comfortably. - Related Data Previous Rx's Medication Instructions Recorded Aspirin 81 mg PO DAILY #90 tab 05/10/22 Atorvastatin [Lipitor] 40 mg PO DAILY #90 tab 05/10/22 Metoprolol Succinate (ER) [Toprol 50 mg PO DAILY #90 tab 05/10/22 XL] Nitroglycerin Sl Tabs [Nitrostat] 0.4 mg SUBLINGUAL Q5M PRN #100 tab 05/10/22 Spironolactone [Aldactone] 25 mg PO DAILY #90 tab 05/10/22 Ticagrelor [Brilinta] 90 mg PO BID #180 tab 05/10/22 lisinopriL [Zestril] 2.5 mg PO BID #180 tab 05/10/22 Allergies Allergy/AdvReac Type Severity Reaction Status Date / Time No Known Allergies Allergy Verified 07/04/22 22:05 Review of Systems ROS Statement: Those systems with pertinent positive or pertinent negative responses have been documented in the HPI. ROS Other: All systems not noted in ROS Statement are negative. Past Medical History Past Medical History: Myocardial Infarction (MS) Additional Past Medical History / Comment(s): MS Apr 2022 (current admission) Last Myocardial Infarction Date:: 05/08/22 History of Any Multi-Drug Resistant Organisms: None Reported Past Surgical History: Heart Catheterization With Stent Additional Past Surgical History / Comment(s): Heart Cath Apr 2022 Past Anesthesia/Blood Transfusion Reactions: No Reported Reaction Date of Last Stent Placement:: 05/08/22 Past Psychological History: ADD/ADHD, Depression Smoking Status: Current every day smoker Past Alcohol Use History: None Reported Past Drug Use History: Marijuana General Exam Limitations: no limitations General appearance: alert, in no apparent distress Head exam: Present: atraumatic, normocephalic, normal inspection Eye exam: Present: normal appearance, PERRL Pupils: Present: normal accommodation ENT exam: Present: normal exam, normal oropharynx, mucous membranes moist Neck exam: Present: normal inspection, full ROM Respiratory exam: Present: normal lung sounds bilaterally, other (Tenderness palpation noted in the sternal region consistent with costochondritis) Cardiovascular Exam: Present: regular rate, normal rhythm, normal heart sounds GI/Abdominal exam: Present: soft, normal bowel sounds Extremities exam: Present: normal inspection, full ROM Back exam: Present: normal inspection, full ROM Neurological exam: Present: alert, oriented X3, CN II-XII intact Psychiatric exam: Present: normal affect, normal mood Skin exam: Present: warm, dry Course Vital Signs 07/04/22 07/05/22 07/05/22 22:03 03:59 04:43 Temperature 98.1 F Pulse Rate 108 H 89 92 Respiratory 18 18 Rate Blood Pressure 134/89 104/66 O2 Sat by Pulse 97 99 Oximetry EKG Findings - EKG Comments: EKG Findings:: In EKG was obtained was interpreted by myself. EKG showed a rate of 99, VT interval 133, adventist 97 and QTC of 407. This EKG showed a normal sinus rhythm with no ST segment elevation or depression noted. Medical Decision Making - Medical Decision Making Was pt. sent in by a medical professional or institution? @ -No Did you speak to anyone other than the patient for history? @ -No Did you review nursing and triage notes? @ -Nursing triage notes were reviewed Were old charts reviewed? @ -No Differential Diagnosis? @ -Acute coronary syndrome, chest wall muscle strain, pneumothorax EKG interpreted by me (3pts min.)? @ -As above X-rays interpreted by me (1pt min.)? @ -Chest x-ray was obtained and was interpreted by myself showing no acute process CT interpreted by me (1pt min.)? @ -[none] U/S interpreted by me (1pt. min.)? @ -[none] What testing was considered but not performed? (CT, X-rays, U/S, labs)? Why? @CTA of the chest was considered at this time however the d-dimer quantitative level was negative and a chest x-ray was also negative. Therefore CT of the chest was not performed at this time. What meds were considered but not given? Why? @ -[none] Did you discuss the management of the patient with other professionals? @ -No Did you reconcile home meds? @ -[none] Was smoking cessation discussed for >3mins.? @ -[none] Was critical care preformed (if so, how long)? @ -[none] Were there social determinants of health that impacted care today? How? (Homelessness, low income, unemployed, alcoholism, drug addiction, transporta tion, low edu. Level, literacy, decrease access to med. care, residential, rehab)? @ -None Was there de-escalation of care discussed even if they declined? (Discuss DNR or withdrawal of care, Hospice)? @ -No What co-morbidities impacted this encounter? (DM, HTN, Smoking, COPD, CAD, Cancer, CVA, Hep., AIDS, mental health diagnosis, sleep apnea, morbid obesity)? @ -No Was patient admitted / discharged? @ -The patient was seen and evaluated emergency department. Physical exam, the patient was resting in bed without any acute distress. Vital signs were stable. Laboratory workup was initiated in triage and was within normal limits. Chest x-ray was negative. A d-dimer quantitative level and proBNP were also added however both laboratory workups were negative. The patient did receive IM Toradol as he did have reproducible midsternal chest pain. On reevaluation, the patient was able to sleep and did state that his chest pain had significantly improved. The patient likely had costochondritis and was stable for discharge. The patient was advised to follow-up with his layout man for further workup and evaluation and to report back to the emergency department if his symptoms became acutely worse. The patient was agreeable to this and all his questions were answered. The patient was discharged home in stable condition. Undiagnosed new problem with uncertain prognosis? @ -[none] Drug Therapy requiring intensive monitoring for toxicity (Heparin, Nitro, Insulin, Cardizem)? @ -[none] Were any procedures done? @ -[none] Diagnosis/symptom? @ -Chest wall muscle strain, costochondritis Acute, or Chronic, or Acute on Chronic? @ -Acute Uncomplicated (without systemic symptoms) or Complicated (systemic symptoms)? @ -Uncomplicated Side effects of treatment? @ -[none] Exacerbation, Progression, or Severe Exacerbation] @ -[no] Poses a threat to life or bodily function? @ -[no] - Lab Data Result diagrams: 07/04/22 22:32 07/04/22 22:32 Lab Results 07/04/22 07/04/22 07/04/22 Range/Units 22:32 22:32 22:32 WBC 8.2 (3.8-10.6) k/uL RBC 2.69 L (4.30-5.90) m/uL Hgb 14.5 (13.0-17.5) gm/dL Hct 24.3 L (39.0-53.0) % MCV 90.2 (80.0-100.0) fL MCH 54.0 H (25.0-35.0) pg MCHC 59.9 H (31.0-37.0) g/dL RDW 13.5 (11.5-15.5) % Plt Count 179 (150-450) k/uL MPV 7.5 Neutrophils % 60 % Lymphocytes % 25 % Monocytes % 8 % Eosinophils % 4 % Basophils % 1 % Neutrophils # 4.9 (1.3-7.7) k/uL Lymphocytes # 2.1 (1.0-4.8) k/uL Monocytes # 0.6 (0-1.0) k/uL Eosinophils # 0.3 (0-0.7) k/uL Basophils # 0.1 (0-0.2) k/uL PT (9.0-12.0) sec INR (<1.2) APTT (22.0-30.0) sec D-Dimer (<0.60) mg/L FEU Sodium 137 (137-145) mmol/L Potassium 4.3 (3.5-5.1) mmol/L Chloride 108 H (98-107) mmol/L Carbon Dioxide 20 L (22-30) mmol/L Anion Gap 9 mmol/L BUN 15 (9-20) mg/dL Creatinine 0.76 (0.66-1.25) mg/dL Est GFR (CKD-EPI)AfAm >90 (>60 ml/min/1.73 sqM) Est GFR (CKD-EPI)NonAf >90 (>60 ml/min/1.73 sqM) Glucose 148 H (74-99) mg/dL Calcium 8.9 (8.4-10.2) mg/dL Magnesium 2.0 (1.6-2.3) mg/dL Total Bilirubin 0.2 (0.2-1.3) mg/dL AST 29 (17-59) U/L ALT 30 (4-49) U/L Alkaline Phosphatase 67 (38-126) U/L Troponin I <0.012 (0.000-0.034) ng/mL NT-Pro-B Natriuret Pep pg/mL Total Protein 6.8 (6.3-8.2) g/dL Albumin 3.8 (3.5-5.0) g/dL 07/05/22 07/05/22 07/05/22 Range/Units 03:51 03:51 03:51 WBC (3.8-10.6) k/uL RBC (4.30-5.90) m/uL Hgb (13.0-17.5) gm/dL Hct (39.0-53.0) % MCV (80.0-100.0) fL MCH (25.0-35.0) pg MCHC (31.0-37.0) g/dL RDW (11.5-15.5) % Plt Count (150-450) k/uL MPV Neutrophils % % Lymphocytes % % Monocytes % % Eosinophils % % Basophils % % Neutrophils # (1.3-7.7) k/uL Lymphocytes # (1.0-4.8) k/uL Monocytes # (0-1.0) k/uL Eosinophils # (0-0.7) k/uL Basophils # (0-0.2) k/uL PT 10.0 (9.0-12.0) sec INR 0.9 (<1.2) APTT 22.8 (22.0-30.0) sec D-Dimer 0.37 (<0.60) mg/L FEU Sodium (137-145) mmol/L Potassium (3.5-5.1) mmol/L Chloride (98-107) mmol/L Carbon Dioxide (22-30) mmol/L Anion Gap mmol/L BUN (9-20) mg/dL Creatinine (0.66-1.25) mg/dL Est GFR (CKD-EPI)AfAm (>60 ml/min/1.73 sqM) Est GFR (CKD-EPI)NonAf (>60 ml/min/1.73 sqM) Glucose (74-99) mg/dL Calcium (8.4-10.2) mg/dL Magnesium (1.6-2.3) mg/dL Total Bilirubin (0.2-1.3) mg/dL AST (17-59) U/L ALT (4-49) U/L Alkaline Phosphatase (38-126) U/L Troponin I (0.000-0.034) ng/mL NT-Pro-B Natriuret Pep 379 pg/mL Total Protein (6.3-8.2) g/dL Albumin (3.5-5.0) g/dL Disposition Clinical Impression: Chest wall muscle strain Disposition: HOME SELF-CARE Condition: Stable Instructions (If sedation given, give patient instructions): Costochondritis (ED) Is patient prescribed a controlled substance at d/c from ED?: No Referrals: Jorge Butterfield MD [Primary Care Provider] - 1-2 days Time of Disposition: 05:50
[2022-07-05 06:28] VITALS: PULSE 89
== END 2022-07-05 06:28 | disposition home or self-care (01) ==
LOC: EC 21:56
DX: S29.011A Strain of muscle and tendon of front wall of thorax, initial encounter (principal); I25.2 Old myocardial infarction; F90.9 Attention-deficit hyperactivity disorder, unspecified type; F32.A Depression, unspecified; F17.200 Nicotine dependence, unspecified, uncomplicated; F12.90 Cannabis use, unspecified, uncomplicated; Z79.01 Long term (current) use of anticoagulants; Z79.899 Other long term (current) drug therapy; X58.XXXA Exposure to other specified factors, initial encounter
CPT/HCPCS: 36415; 71046; 80053; 83735; 83880; 84484; 85025; 85379; 85610; 85730; 93005; 96374; 99285

== ENCOUNTER → 2022-08-10 | Outpatient (CLI) | payer OTHER ==
[2022-08-10 14:33] LABS: HCT 41.3 % (39.6-50.0); HGB 13.7 g/dL (13.0-17.0); MCH 29.8 pg (27.0-32.0); MCHC 33.2 g/dL (32.0-37.0); MCV 89.8 fL (80.0-97.0); Mean Platelet Volume 9.7 fL (9.5-12.2); NRBC Per 100 WBC 0 /100 WBCS (0.0-0.0); Platelet Count 327 X 10*3/uL (140-440); RDW 13.7 % (11.5-14.5); WBC 9.03 X 10*3/uL (4.50-10.00)
[2022-08-10 14:48] LABS: African American GFR (CKD) 123.3 (60.0-200.0); Anion Gap 12.1 mmol/L (10.00-18.00); Blood Urea Nitrogen 9.5 mg/dL (9.0-27.0); Carbon Dioxide 21.9 mmol/L (20.0-27.5); Non-African American GFR(CKD) 106.4 (60.0-200.0); Potassium 4.1 mmol/L (3.5-5.5)
== END | disposition home or self-care (01) ==
LOC: LABPAT 09:36
PROVIDERS: ATTEND Internal Medicine Interventional Cardiology
DX: Z01.812 Encounter for preprocedural laboratory examination (principal); I25.10 Atherosclerotic heart disease of native coronary artery without angina pectoris
CPT/HCPCS: 80051; 82565; 84520; 85027

== ENCOUNTER → 2022-12-08 | Outpatient (CLI) | payer OTHER ==
[2022-12-08 16:53] LABS: Prothrombin Time 10.5 sec (9.0-12.0)
[2022-12-09 01:26] LABS: HCT 43.5 % (39.0-53.0); HGB 14.2 gm/dL (13.0-17.5); MCH 30.3 pg (25.0-35.0); MCHC 32.6 g/dL (31.0-37.0); MCV 92.7 fL (80.0-100.0); Mean Platelet Volume 8.5; Platelet Count 358 k/uL (150-450); RBC 4.69 m/uL (4.30-5.90); RDW 13.4 % (11.5-15.5); WBC 10.3 k/uL (3.8-10.6)
[2022-12-10 09:25] LABS: African American GFR (CKD) >90; BUN/Creat Ratio 15.67 Ratio; Blood Urea Nitrogen 14.1 mg/dL; Calcium 9.2 mg/dL; Carbon Dioxide 23.2 mmol/L; Chloride 104 mmol/L; Glucose 107 mg/dL; Magnesium 2.2 mg/dL; Non-African American GFR(CKD) >90; Potassium 4.6 mmol/L; Sodium 139 mmol/L
== END | disposition home or self-care (01) ==
LOC: LABWHC1 15:43
PROVIDERS: ATTEND Internal Medicine Interventional Cardiology
DX: I25.110 Atherosclerotic heart disease of native coronary artery with unstable angina pectoris (principal)
CPT/HCPCS: 36415; 80048; 83735; 85027; 85610

== ENCOUNTER → 2023-04-30 | Outpatient (CLI) | payer OTHER ==
[2023-05-01 03:15] LABS: ALT 33 U/L (10-49); AST 25 U/L (14-35); Albumin 4.2 d/dL (3.8-4.9); Albumin/Globulin Ratio 1.45 Ratio (1.60-3.17); Alkaline Phosphatase 70 U/L (41-126); BUN/Creat Ratio 15.75 Ratio (12.00-20.00); Blood Urea Nitrogen 12.6 mg/dL (9.0-27.0); Calcium 9.4 mg/dL (8.7-10.3); Carbon Dioxide 22.3 mmol/L (21.6-31.8); Chloride 104 mmol/L (96-109); Chol/HDL Ratio 3.67 Ratio; Globulin 2.9 d/dL (1.6-3.3); Glucose 80 mg/dL (70-110); LDL Cholesterol,Calculated 74.9 mg/dL (0.0-131.0); Potassium 5.1 mmol/L (3.5-5.5); Sodium 138 mmol/L (135-145); Total Bilirubin 0.3 mg/dL (0.3-1.2); Total Protein 7.1 d/dL (6.2-8.2)
== END | disposition home or self-care (01) ==
LOC: LABWHC1 13:35
PROVIDERS: ATTEND Internal Medicine Interventional Cardiology
DX: E78.2 Mixed hyperlipidemia (principal)
CPT/HCPCS: 36415; 80053; 80061

== ENCOUNTER → 2023-10-30 | Outpatient (CLI) | payer OTHER ==
[2023-10-30 11:55] LABS: ALT 39 U/L (10-49); AST 26 U/L (14-35); Albumin/Globulin Ratio 1.48 Ratio (1.60-3.17); Alkaline Phosphatase 76 U/L (41-126); Blood Urea Nitrogen 11.2 mg/dL (9.0-27.0); Calcium 8.8 mg/dL (8.7-10.3); Carbon Dioxide 24.7 mmol/L (21.6-31.8); Chloride 103 mmol/L (96-109); Chol/HDL Ratio 3.54 Ratio; Globulin 2.7 g/dL (1.6-3.3); Glucose 95 mg/dL (70-110); LDL Cholesterol,Calculated 64.2 mg/dL (0.0-131.0); Potassium 4.6 mmol/L (3.5-5.5); Sodium 138 mmol/L (135-145); Total Bilirubin 0.5 mg/dL (0.3-1.2); Total Protein 6.7 g/dL (6.2-8.2)
== END | disposition home or self-care (01) ==
LOC: LABWHC1 07:56
PROVIDERS: ATTEND Internal Medicine Interventional Cardiology
DX: I10 Essential (primary) hypertension (principal); E78.2 Mixed hyperlipidemia
CPT/HCPCS: 36415; 80053; 80061

== ENCOUNTER 2024-02-02 15:15 | Emergency (ER) | payer OTHER ==
[2024-02-02 15:22] VITALS: RESP 18; TEMP 98
--- NOTE | 2024-02-02 15:50 | ED ---
Dizziness HPI - General Chief Complaint: Dizziness Stated Complaint: Dizziness Time Seen by Provider: 02/02/24 15:32 Source: patient, EMS, RN notes reviewed Mode of arrival: EMS Limitations: no limitations - History of Present Illness Initial Comments: This is a 48-year-old male with a past medical history multiple heart attacks with 7 stent placements who presents to the emergency department via EMS from work with chief complaint of intermittent dizziness. Patient states that over the past few weeks he has experienced intermittent dizziness described as a room spinning sensation. Dizziness will last anywhere between 5 to 15 minutes and exacerbated when he has quick movements of his head. Is that he occasionally experience nausea associated with the dizziness as well. He has not attempted to take any medications at home to alleviate symptoms. He denies symptoms similar to this in the past. He denies symptoms of chest pain, chest pressure, palpitations, headaches. - Related Data Home Medications Medication Instructions Recorded Confirmed Atorvastatin [Lipitor] 80 mg PO DAILY 02/02/24 02/02/24 Empagliflozin [Jardiance] 10 mg PO DAILY 02/02/24 02/02/24 Ezetimibe [Zetia] 10 mg PO DAILY 02/02/24 02/02/24 Metoprolol Succinate (ER) [Toprol 50 mg PO BID@0900,1700 02/02/24 02/02/24 XL] Nitroglycerin Sl Tabs [Nitrostat] 0.4 mg SL Q5M PRN 02/02/24 02/02/24 Sertraline HCl [Zoloft] 50 mg PO DAILY 02/02/24 02/02/24 Vitamin D3(Unknown Dose) 1 tab PO DAILY 02/02/24 02/02/24 lisinopriL [Zestril] 5 mg PO DAILY 02/02/24 02/02/24 Previous Rx's Medication Instructions Recorded Aspirin 81 mg PO DAILY #90 tab 05/10/22 Spironolactone [Aldactone] 25 mg PO DAILY #90 tab 05/10/22 Meclizine [Antivert] 25 mg PO TID PRN #15 tab 02/02/24 Allergies Allergy/AdvReac Type Severity Reaction Status Date / Time No Known Allergies Allergy Verified 02/02/24 16:44 Review of Systems ROS Statement: Those systems with pertinent positive or pertinent negative responses have been documented in the HPI. ROS Other: All systems not noted in ROS Statement are negative. Past Medical History Past Medical History: Myocardial Infarction (CT) Additional Past Medical History / Comment(s): CT Apr 2022 (current admission) Last Myocardial Infarction Date:: 05/08/22 History of Any Multi-Drug Resistant Organisms: None Reported Past Surgical History: Heart Catheterization With Stent Additional Past Surgical History / Comment(s): Heart Cath Apr 2022 Past Anesthesia/Blood Transfusion Reactions: No Reported Reaction Date of Last Stent Placement:: 05/08/22 Past Psychological History: ADD/ADHD, Depression Smoking Status: Current every day smoker Past Drug Use History: Marijuana General Exam Limitations: no limitations General appearance: alert, in no apparent distress Head exam: Present: atraumatic, normocephalic, normal inspection Eye exam: Present: normal appearance, PERRL, EOMI. Absent: scleral icterus, conjunctival injection, periorbital swelling ENT exam: Present: normal exam, mucous membranes moist Neck exam: Present: normal inspection. Absent: tenderness, meningismus, lymphadenopathy Respiratory exam: Present: normal lung sounds bilaterally. Absent: respiratory distress, wheezes, rales, rhonchi, stridor Cardiovascular Exam: Present: regular rate, normal rhythm, normal heart sounds. Absent: systolic murmur, diastolic murmur, rubs, gallop, clicks GI/Abdominal exam: Present: soft, normal bowel sounds. Absent: distended, tenderness, guarding, rebound, rigid Extremities exam: Present: normal inspection, full ROM, normal capillary refill. Absent: tenderness, pedal edema, joint swelling, calf tenderness Back exam: Present: normal inspection Neurological exam: Present: alert, oriented X3, CN II-XII intact Psychiatric exam: Present: normal affect, normal mood Skin exam: Present: warm, dry, intact, normal color. Absent: rash Course Vital Signs 02/02/24 02/02/24 02/02/24 15:17 16:44 17:11 Temperature 98 F Pulse Rate 87 89 87 Respiratory 18 18 18 Rate Blood Pressure 103/71 114/53 130/84 O2 Sat by Pulse 97 97 97 Oximetry Medical Decision Making - Medical Decision Making Was pt. sent in by a medical professional or institution (, PA, MARKETING DIRECTOR, urgent care, hospital, or fci...) When possible be specific @ -No Did you speak to anyone other than the patient for history (EMS, parent, family, police, friend...)? What history was obtained from this source @ -No Did you review nursing and triage notes (agree or disagree)? Why? @ -I reviewed and agree with nursing and triage notes Were old charts reviewed (outside hosp., previous admission, EMS record, old EKG, old radiological studies, urgent care reports/EKG's, fci records)? Report findings @ -No old charts were reviewed Differential Diagnosis (chest pain, altered mental status, abdominal pain women, abdominal pain men, vaginal bleeding, weakness, fever, dyspnea, syncope, headache, dizziness, GI bleed, back pain, seizure, CVA, palpatations, mental health, musculoskeletal)? @ -Differential Dizziness: Benign paroxysmal positional Vertigo, Menieres disease, otitis media, acoustic neuroma, vertebrobasilar insufficiency, cerebellar stroke, encephalitis, hypovolemic, arrhythmia, coronary artery syndrome, anemia, this is not meant to be an all-inclusive list EKG interpreted by me (3pts min.). @ -completed at 1530, sinus rhythm with a short CA interval, ventricular rate 85, CA interval 108, QTc 414. No acute signs of ischemia. X-rays interpreted by me (1pt min.). @ -None done CT interpreted by me (1pt min.). @ -CT brain without contrast no acute intracranial abnormality noted. U/S interpreted by me (1pt. min.). @ -None done What testing was considered but not performed or refused? (CT, X-rays, U/S, labs)? Why? @ -None What meds were considered but not given or refused? Why? @ -None Did you discuss the management of the patient with other professionals (professionals i.e. , PA, MARKETING DIRECTOR, lab, RT, psych nurse, foster care social worker, lagging machine operator, teacher, chief supply chain officer, manager case)? Give summary @ -No Was smoking cessation discussed for >3mins.? @ -No Was critical care preformed (if so, how long)? @ -No Were there social determinants of health that impacted care today? How? (Ho melessness, low income, unemployed, alcoholism, drug addiction, transportation, low edu. Level, literacy, decrease access to med. care, penitentiary, rehab)? @ -No Was there de-escalation of care discussed even if they declined (Discuss DNR or withdrawal of care, Hospice)? DNR status @ -No What co-morbidities impacted this encounter? (DM, HTN, Smoking, COPD, CAD, Cancer, CVA, ARF, Chemo, Hep., AIDS, mental health diagnosis, sleep apnea, morbid obesity)? @ -None Was patient admitted / discharged? Hospital course, mention meds given and route, prescriptions, significant lab abnormalities, going to OR and other pertinent info. @ -Discharge. 48-year-old male with dizziness. Patient's vitals are stable upon arrival. Patient states that his dizziness is described as a movement sensation that is exacerbated with quick head movements. There are no neurological deficits on examination, no signs of nystagmus. No evidence of fluid collection behind bilateral TMs. Patient will be evaluated via CT and labs due to 2 episodes of dizziness. He is also with a dose of IV fluids and meclizine with concern for vertigo due to patient's symptoms of exacerbation with movement. Patient is agreement with this plan. EKG not concerning for acute ischemia or arrhythmia. CBC, CMP unremarkable, troponin nonelevated at less than 0.012. Evaluation, patient states that he is feeling much better aft er the fluids and meclizine and states that the dizziness has markedly subsided especially when he is moving his head. Patient symptoms are consistent with vertigo. Patient will be sent a prescription for meclizine and instructed to take this only as needed. Recommend increasing oral rehydration. All questions answered at bedside and strict return parameters discussed with the patient he is verbalized understanding. Case discussed with Dr. Hung Undiagnosed new problem with uncertain prognosis? @ -No Drug Therapy requiring intensive monitoring for toxicity (Heparin, Nitro, I nsulin, Cardizem)? @ -No Were any procedures done? @ -No Diagnosis/symptom? @ -dizziness, vertigo Acute, or Chronic, or Acute on Chronic? @ -Acute Uncomplicated (without systemic symptoms) or Complicated (systemic symptoms)? @ -uncomplicated Side effects of treatment? @ -No Exacerbation, Progression, or Severe Exacerbation? @ -No Poses a threat to life or bodily function? How? (Chest pain, USA, CT, pneumonia, PE, COPD, DKA, ARF, appy, cholecystitis, CVA, Diverticulitis, Homicidal, Suicidal, threat to staff... and all critical care pts) @ -No - Lab Data Result diagrams: 02/02/24 16:05 02/02/24 16:05 Lab Results 02/02/24 02/02/24 02/02/24 Range/Units 16:05 16:05 16:05 WBC 11.3 H (3.8-10.6) k/uL RBC 4.79 (4.30-5.90) m/uL Hgb 14.0 (13.0-17.5) gm/dL Hct 43.2 (39.0-53.0) % MCV 90.2 (80.0-100.0) fL MCH 29.3 (25.0-35.0) pg MCHC 32.5 (31.0-37.0) g/dL RDW 14.2 (11.5-15.5) % Plt Count 387 (150-450) k/uL MPV 7.4 Neutrophils % 67 % Lymphocytes % 19 % Monocytes % 8 % Eosinophils % 4 % Basophils % 1 % Neutrophils # 7.6 (1.3-7.7) k/uL Lymphocytes # 2.1 (1.0-4.8) k/uL Monocytes # 0.9 (0-1.0) k/uL Eosinophils # 0.4 (0-0.7) k/uL Basophils # 0.1 (0-0.2) k/uL Sodium 136 L (137-145) mmol/L Potassium 4.7 (3.5-5.1) mmol/L Chloride 108 H (98-107) mmol/L Carbon Dioxide 20 L (22-30) mmol/L Anion Gap 8 mmol/L BUN 17 (9-20) mg/dL Creatinine 0.76 (0.66-1.25) mg/dL Est GFR (CKD-EPI)AfAm >90 (>60 ml/min/1.73 sqM) Est GFR (CKD-EPI)NonAf >90 (>60 ml/min/1.73 sqM) Glucose 91 (74-99) mg/dL Calcium 8.8 (8.4-10.2) mg/dL Magnesium 2.0 (1.6-2.3) mg/dL Total Bilirubin 0.4 (0.2-1.3) mg/dL AST 29 (17-59) U/L ALT 29 (4-49) U/L Alkaline Phosphatase 71 (38-126) U/L Troponin I <0.012 (0.000-0.034) ng/mL Total Protein 6.6 (6.3-8.2) g/dL Albumin 3.9 (3.5-5.0) g/dL Disposition Clinical Impression: Vertigo, Dizziness Disposition: HOME SELF-CARE Condition: Good Instructions (If sedation given, give patient instructions): Vertigo (ED), Dizziness (ED) Additional Instructions: Return to the emergency department for any new or worsening symptoms. Take prescribed medication as needed for intermittent dizziness. Prescriptions: Meclizine [Antivert] 25 mg PO TID PRN #15 tab PRN Reason: Vertigo Is patient prescribed a controlled substance at d/c from ED?: No Referrals: Jorge Butterfield MD [Primary Care Provider] - 1-2 days Time of Disposition: 16:58
[2024-02-02] MEDS: MECLIZINE 12.5 MG TAB PO STA (16:06)
[2024-02-02] MEDS: SODIUM CHLORIDE 0.9% 1,000 ML IV STA (16:07)
[2024-02-02 16:17] LABS: Basophils # (A) 0.1 k/uL (0-0.2); Basophils % (A) 1 %; Eosinophils # (A) 0.4 k/uL (0-0.7); Eosinophils % (A) 4 %; HCT 43.2 % (39.0-53.0); Lymphocytes # (A) 2.1 k/uL (1.0-4.8); Lymphocytes % (A) 19 %; MCH 29.3 pg (25.0-35.0); MCHC 32.5 g/dL (31.0-37.0); MCV 90.2 fL (80.0-100.0); Mean Platelet Volume 7.4; Monocytes # (A) 0.9 k/uL (0-1.0); Monocytes % (A) 8 %; Neutrophils # (A) 7.6 k/uL (1.3-7.7); Neutrophils % (A) 67 %; Platelet Count 387 k/uL (150-450); RBC 4.79 m/uL (4.30-5.90); RDW 14.2 % (11.5-15.5); WBC 11.3 k/uL (3.8-10.6)
--- NOTE | 2024-02-02 16:24 | CT ---
EXAMINATION TYPE: CT brain wo con DATE OF EXAM: 02/02/2024 COMPARISON: HISTORY: dizziness. CT DLP: 1289.[address] of the brain was performed. The ventricles, basal cisterns and sulci overlying the cerebral convexities demonstrate a normal appe arance. There is no evidence for intracranial hemorrhage or sulcal effacement. No mass effects are seen. Osseous calvarium is intact. If symptoms persist consider MRI as clinically warranted. IMPRESSION: 1. No acute intracranial process is seen at this time.
[2024-02-02 16:31] LABS: ALT 29 U/L (4-49); AST 29 U/L (17-59); African American GFR (CKD) >90 (>60 ml/min/1.73 sqM); Albumin 3.9 g/dL (3.5-5.0); Alkaline Phosphatase 71 U/L (38-126); Anion Gap 8 mmol/L; Blood Urea Nitrogen 17 mg/dL (9-20); Calcium 8.8 mg/dL (8.4-10.2); Carbon Dioxide 20 mmol/L (22-30); Chloride 108 mmol/L (98-107); Glucose 91 mg/dL (74-99); Non-African American GFR(CKD) >90 (>60 ml/min/1.73 sqM); Potassium 4.7 mmol/L (3.5-5.1); Sodium 136 mmol/L (137-145); Total Bilirubin 0.4 mg/dL (0.2-1.3); Total Protein 6.6 g/dL (6.3-8.2)
[2024-02-02 17:12] VITALS: BP 130/84; PULSE 87
== END 2024-02-02 17:12 | disposition home or self-care (01) ==
LOC: EC 15:15
DX: R42 Dizziness and giddiness (principal); F17.200 Nicotine dependence, unspecified, uncomplicated
CPT/HCPCS: 36415; 70450; 80053; 83735; 84484; 85025; 93005; 96360; 99285

== ENCOUNTER → 2024-04-22 | Outpatient (CLI) | payer OTHER ==
[2024-04-22 10:33] LABS: ALT 36 U/L (10-49); AST 24 U/L (14-35); Albumin 4.2 g/dL (3.8-4.9); Albumin/Globulin Ratio 1.45 Ratio (1.60-3.17); Alkaline Phosphatase 81 U/L (41-126); BUN/Creat Ratio 16.78 Ratio (12.00-20.00); Blood Urea Nitrogen 15.1 mg/dL (9.0-27.0); Carbon Dioxide 24.8 mmol/L (21.6-31.8); Chloride 103 mmol/L (96-109); Chol/HDL Ratio 3.72 Ratio; Globulin 2.9 g/dL (1.6-3.3); Glucose 95 mg/dL (70-110); Sodium 137 mmol/L (135-145); Total Bilirubin 0.4 mg/dL (0.3-1.2); Total Protein 7.1 g/dL (6.2-8.2)
== END | disposition home or self-care (01) ==
LOC: LABWHC1 07:35
PROVIDERS: ATTEND Internal Medicine Interventional Cardiology
DX: E78.2 Mixed hyperlipidemia (principal)
CPT/HCPCS: 36415; 80053; 80061

== ENCOUNTER → 2024-11-06 | Outpatient (CLI) | payer OTHER ==
[2024-11-06 15:55] LABS: ALT 35 U/L (10-49); AST 22 U/L (14-35); Albumin/Globulin Ratio 1.43 Ratio (1.60-3.17); Alkaline Phosphatase 71 U/L (41-126); BUN/Creat Ratio 14.29 Ratio (12.00-20.00); Calcium 9.1 mg/dL (8.7-10.3); Carbon Dioxide 22.8 mmol/L (21.6-31.8); Chloride 102 mmol/L (96-109); Chol/HDL Ratio 3.18 Ratio; Globulin 2.8 g/dL (1.6-3.3); Glucose 89 mg/dL (70-110); LDL Cholesterol,Calculated 60.6 mg/dL (0.0-131.0); Potassium 4.6 mmol/L (3.5-5.5); Sodium 136 mmol/L (135-145); Total Bilirubin 0.6 mg/dL (0.3-1.2); Total Protein 6.8 g/dL (6.2-8.2); VLDL Calculation 11.44 mg/dL (5.00-40.00)
== END | disposition home or self-care (01) ==
LOC: LABWHC1 07:42
PROVIDERS: ATTEND Internal Medicine Interventional Cardiology
DX: I10 Essential (primary) hypertension (principal); E78.2 Mixed hyperlipidemia
CPT/HCPCS: 36415; 80053; 80061

== ENCOUNTER → 2025-01-28 | Outpatient (CLI) | payer OTHER ==
--- NOTE | 2025-01-28 11:44 | FL ---
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 All patient questions were answ ered prior to beginning. Multiple spot fluoroscopic images of the colon were obtained after the recta l administration of Gastrografin as the contrast agent. Multiple postprocedural overhead images, we re obtained and reviewed. DAP: NOT REPORTED [id number] FINDINGS: The Limited sigmoid colon and rectum barium enema only. No fistula identified extending towards the expec dave location of the urinary bladder. No prior imaging available to confirm entered anatomy of the uri nary bladder and colon locations.. The colon demonstrates normal course and contour without evidence of focal stricture, internal filling defects, or abnormal outpouching. IMPRESSION: No evidence for Vesicointestinal Fistula. No prior imaging available for comparison. No evidence for abnormal stricture or mass lesion within the sigmoid colon. [facility], , 01/28/2025 11:42 AM
== END | disposition home or self-care (01) ==
LOC: RADFLMAIN 08:44
PROVIDERS: ATTEND Student in an Organized Health Care Education/Training Program
DX: N32.1 Vesicointestinal fistula (principal)
CPT/HCPCS: 74270